=== PATIENT | male | born 1990 | race Caucasian/White ===

== ENCOUNTER 2017-01-21 02:45 | Emergency (ER) | payer BC, OTHER ==
[2017-01-21 02:52] VITALS: BP 147/91
--- NOTE | 2017-01-21 02:58 | EDM.PDOC ---
ED HPI HEAD INJURY - General Chief Complaint: Head Injury Stated Complaint: FELL AND GASHED BACK OF HEAD Time Seen by Provider: 01/21/17 02:50 Source of Information: Reports: Patient, EMS History Limitations: Reports: No limitations - History of Present Illness INITIAL COMMENTS - FREE TEXT/NARRATIVE: This is a 26-year-old male. He is brought to the ER by ambulance. Apparently he fell and hit the back of his head and according to bystanders he was having loss of consciousness for approximately 1 minute. When they arrived he was noted to have a laceration to the back of his head with bleeding controlled. They transported him to the ER and he appears to be very talkative has some confusion with his concepts of what's going on around him. He does recognize his in the hospital but then he goes on a tangent of something completely unrelated. He himself denies loss of consciousness. He has been drinking alcohol this evening he also complains of some mild neck pain and he appears to have a black eye on the left-hand side. When I asked him how he got the black eye he says it was from helping someone else. He does not appear to be in acute distress he is moving all 4 extremities equally and he denies any other injuries. His last tetanus is really unknown. - Related Data Allergies/ADRs: Allergies Allergy/AdvReac Type Severity Reaction Status Date / Time No Known Allergies Allergy Verified 01/21/17 02:50 Home Meds: Home Meds . [No Known Home Meds] 01/21/17 [History] ED ROS GENERAL - Review of Systems Review Of Systems: Unable To Obtain (Review of systems is unobtainable due to his alleged alcohol intake and his mild confusion, he will deny any acute symptoms or illnesses recently and he states he's been doing fine) ED EXAM, HEAD INJURY - Physical Exam Exam: See Below Exam Limited By: Altered mental status General Appearance: alert, WD/WN, no apparent distress Head: other (His head is wrapped with Kerlix light he has a laceration to the posterior scalp with bleeding controlled, I will not unwrap the Curlex until after the CAT scans are done and then I will evaluate the laceration, he has about a 3 cm laceration on the posterior scalp noted, he has a developing a bruise underneath his left eye as well) Eyes: bilateral eye: normal inspection Ears: normal external exam, normal canal, normal TMs Nose: normal inspection Throat/Mouth: Normal lips, Normal voice, No airway compromise Neck: other (Complains of soreness in the posterior neck but is not midline seems to be generalized paraspinal type of soreness, there is no step-off lesions in the neck noted, patient is moving his neck back and forth up and down without difficulty) Respiratory: no respiratory distress, lungs clear, normal breath sounds Cardiovascular: regular rate, rhythm, no murmur Back Exam: full range of motion Extremities: no evidence of injury, normal range of motion, other (Patient denies any hand pain arm or shoulder pain, denies any lower extremity injuries denies hip knee ankle or foot pain) Neurologic: alert, other (Patient has some confused talking but he attempts to answer questions and the easy questions he appears to answer correctly, he does follow commands without difficulty move his upper and lower extremities with request) Skin: Normal color, Warm/dry - [place] Coma Score Best Eye Response ([place]): (4) open spontaneously Best Verbal Response ([place]): (4) confused conversation Best Motor Response ([place]): (6) obeys commands [place] Total: 14 ED LACERATION/WOUND & RADHA PROC - Laceration/Wound Repair Posterior Head Lac/wound length in cm: 3 Appearance: subcutaneous, irregular Distal NVT: neuro & vascular intact Anesthetic type: local Local anesthesia - Lidocaine (Xylocaine): 1% plain Local anesthetic volume: other (9 cc) Skin prep: chlorhexidine (hibiciens), providone-iodine (betadine) Exploration/Debridement/Repair: wound explored, explored to base Closed with: sutures Suture size: 4-0 # of sutures: 5 Tetanus status addressed: Yes Complications: No Progress/Comments: Patient tolerated the procedure well Course - Vital Signs Last Recorded V/S: Last Vital Signs Temp 97.1 F 01/21/17 02:50 Pulse 108 H 01/21/17 02:50 Resp 18 01/21/17 02:50 BP 147/91 H 01/21/17 02:50 Pulse Ox 100 01/21/17 02:50 - Orders/Labs/Meds Orders: Active Orders 24 hr Category Date Time Status Vaccines to be Administered [RC] PER UNIT ROUTINE Care 01/21/17 03:53 Active Cervical Spine wo Cont [CT] Stat Exams 01/21/17 02:50 Taken Head wo Cont [CT] Stat Exams 01/21/17 02:50 Taken Max Facial Sinus wo Cont [CT] Stat Exams 01/21/17 02:50 Taken Labs: Laboratory Tests 01/21/17 01/21/17 Range/Units 03:04 03:04 WBC 7.84 (4.23-9.07) K/mm3 RBC 5.22 (4.63-6.08) M/mm3 Hgb 15.7 (13.7-17.5) gm/L Hct 45.4 (40.1-51.0) % MCV 87.0 (79.0-92.2) fl MCH 30.1 (25.7-32.2) pg MCHC 34.6 (32.2-35.5) g/dl RDW Std Deviation 41.4 (35.1-43.9) fL Plt Count 163 (163-337) K/mm3 MPV 11.2 (9.4-12.3) fl Neut % (Auto) 61.2 (34.0-67.9) % Lymph % (Auto) 29.6 (21.8-53.1) % Bonner % (Auto) 6.5 (5.3-12.2) % Eos % (Auto) 1.8 (0.8-7.0) Baso % (Auto) 0.8 (0.1-1.2) % Neut # (Auto) 4.80 (1.78-5.38) K/mm3 Lymph # (Auto) 2.32 (1.32-3.57) K/mm3 Bonner # (Auto) 0.51 (0.30-0.82) K/mm3 Eos # (Auto) 0.14 (0.04-0.54) K/mm3 Baso # (Auto) 0.06 (0.01-0.08) K/mm3 Sodium 141 (136-145) mEq/L Potassium 4.1 (3.5-5.1) mEq/L Chloride 104 (98-107) mEq/L Carbon Dioxide 25 (21-32) mEq/L Anion Gap 16.1 H (5-15) BUN 13 (7-18) mg/dL Creatinine 1.0 (0.7-1.3) mg/dL Est Cr Clr Drug Dosing 78.47 mL/min Estimated GFR (MDRD) > 60 (>60) mL/min BUN/Creatinine Ratio 13.0 L (14-18) Glucose 107 H (74-106) mg/dL Calcium 8.4 L (8.5-10.1) mg/dL Total Bilirubin 0.3 (0.2-1.0) mg/dL AST 27 (15-37) U/L ALT 39 (16-63) U/L Alkaline Phosphatase 81 (46-116) U/L Total Protein 7.7 (6.4-8.2) g/dl Albumin 4.3 (3.4-5.0) g/dl Globulin 3.4 gm/dL Albumin/Globulin Ratio 1.3 (1-2) Ethyl Alcohol 0.28 (0.00) gm% Meds: Medications Discontinued Medications Generic Name Dose Route Start Last Admin Trade Name Freq PRN Reason Stop Dose Admin Diphtheria/Tetanus/Acell Pertussis 0.5 ml 01/21/17 03:53 Boostrix IM 01/21/17 03:54 .ONCE ONE Lidocaine HCl 30 ml 01/21/17 03:06 Xylocaine 1% INJECT 01/21/17 03:07 ONETIME ONE Lidocaine HCl Confirm 01/21/17 03:18 Xylocaine-Mpf 1% Administered 01/21/17 03:19 Dose 30 ml .ROUTE .[facility] - Radiology Interpretation Free Text/Narrative:: CT of the cervical spine does not show any acute fractures or subluxations. CT of the head is negative for any acute intracranial process, he was noted to have some asymmetry there was incidental, he was also noted to have some mild disconjugate gaze during the CAT scan. CT scan of the maxillofacial shows no orbital or sinus wall fracture there is some left periorbital soft tissue swelling which coincides with a developing bruise and no disconjugate gaze is noted on this exam compared to the CT of the head. - Re-Assessments/Exams Free Text/Narrative Re-Assessment/Exam: 01/21/17 03:53 Patient is really certain when his last tetanus was he says maybe 10 years so we will update his tetanus status. 01/21/17 06:34 Patient was awakened and he is coherent and walking without difficulty. I talked to about his injuries of his bruise to his face and stitches to his scalp. Hadn't realized that he had hurt himself last night but now he is aware. He denies any other acute symptoms at this time he is walking about the ER without difficulty. We will send him home by taxi since he has lost his telephone and doesn't have a ride Departure - Departure Time of Disposition: 06:35 Disposition: Home, Self-Care 01 Condition: good Clinical Impression: Occipital scalp laceration Qualifiers: Encounter type: initial encounter Qualified Code(s): S01.01XA - Laceration without foreign body of scalp, initial encounter Contusion of face Qualifiers: Encounter type: initial encounter Qualified Code(s): S00.83XA - Contusion of other part of head, initial encounter Scalp contusion Qualifiers: Encounter type: initial encounter Qualified Code(s): S00.03XA - Contusion of scalp, initial encounter Instructions: Head Injury, Adult, [id number] Forms: ED Department Discharge Additional Instructions: Go home and sleep, no alcohol for 48 hours, you have a laceration to the back of your head and you may shower today, you need the 5 sutures removed in 7-10 days by either the walk-in clinic or the ER or if you have a family physician, you also had a bruise to under your left eye, take some Tylenol or ibuprofen as needed for pain, use ice to your scalp and your face to help with the soreness and the bruising, return to the ER if needed - My Orders Last 24 Hours: My Active Orders 01/21/17 02:50 Cervical Spine wo Cont [CT] Stat Head wo Cont [CT] Stat Max Facial Sinus wo Cont [CT] Stat 01/21/17 03:53 Vaccines to be Administered [RC] PER UNIT ROUTINE - Assessment/Plan Last 24 Hours: My Active Orders 01/21/17 02:50 Cervical Spine wo Cont [CT] Stat Head wo Cont [CT] Stat Max Facial Sinus wo Cont [CT] Stat 01/21/17 03:53 Vaccines to be Administered [RC] PER UNIT ROUTINE
[2017-01-21] MEDS ORDERED: Lidocaine 1% 20 ML MDV INJECT ONE (03:06)
[2017-01-21] MEDS ORDERED: Lidocaine 1% 30 ML SDV ONE (03:18)
[2017-01-21] MEDS ORDERED: Diphtheria,Pertussis(Acell),Tetanus Vaccine 0.5 ML SDV inactive IM ONE (03:53)
--- NOTE | 2017-01-22 09:34 | CT ---
CT facial bones Technique: Multiple axial sections through the facial bones were obtained. Comparison: No previous study is available. Findings: Mucosal thickening and probable retention cyst seen within the maxillary sinuses. Mild mucosal thickening within the left frontal, sphenoid and ethmoid sinuses is seen. These findings are felt to be chronic. Slight nasal septal deviation is seen. Right and left globes are symmetric. Mastoid sinuses and middle ear cavities are clear. No acute fracture or other abnormality is seen within the facial bones. Impression: 1. Sinus findings which are felt to be incidental and chronic. 2. Nothing acute is identified on CT study of the facial bones. Diagnostic code #2 I agree with preliminary report issued by [employer] (preliminary report dictated on 01/21/17, 4:57 AM Central Time)
--- NOTE | 2017-01-22 09:34 | CT ---
CT cervical spine Technique: Multiple axial sections were obtained from above C1 inferiorly to the top of T2. Reconstructed sagittal and coronal images were reviewed. Findings: Posterior skull base appears intact. Vertebral body heights and disc spaces are maintained. Vertebral bodies and posterior arches are intact with no fracture being seen. No bony central or bony neural foraminal stenosis is seen. Impression: 1. Nothing acute is identified on CT study of the cervical spine. Diagnostic code #1 I agree with preliminary report issued by [employer] (preliminary report dictated on 01/21 17, 4:43 AM Central Time)
--- NOTE | 2017-01-22 09:34 | CT ---
Head CT Technique: Multiple axial sections through the brain were obtained. Intravenous contrast was not utilized. Comparison: No previous intracranial imaging. Findings: Ventricles along with basal cisterns and sulci over the convexities appear within normal limits for the patient's age. Mild asymmetry seen of the lateral ventricles which is felt to be normal variant. No evidence of intracranial hemorrhage. No midline shift or mass effect is seen. Mild soft tissue swelling noted within the left posterior scalp with small amount of soft tissue air compatible with scalp laceration. Bone window settings were reviewed which show mild mucosal thickening within the frontal and anterior left ethmoid sinus. No acute calvarial abnormality is seen. Impression: 1. Soft tissue swelling and soft tissue air within the left scalp as noted above. 2. Sinus findings which are felt to be incidental. 3. No acute intracranial abnormality is identified. Diagnostic code #2 I agree with preliminary report issued by [employer] (preliminary report dictated on 01/21/17, 4:47 AM Central Time)
== END 2017-01-21 06:44 | disposition home or self-care (01) ==
LOC: JD.ED 02:45
DX: S06.2X1A Diffuse traumatic brain injury with loss of consciousness of 30 minutes or less, initial encounter (principal); W19.XXXA Unspecified fall, initial encounter; S00.83XA Contusion of other part of head, initial encounter; S00.03XA Contusion of scalp, initial encounter; R41.82 Altered mental status, unspecified; M54.2 Cervicalgia; S00.12XA Contusion of left eyelid and periocular area, initial encounter; Z23 Encounter for immunization
CPT/HCPCS: 12002; 36415; 70450; 70486; 72125; 80053; 85025; 90471; 99285; G0480; 90715; 99284; 99284-25